=== PATIENT | male | born 1960 | race African-American/Black ===

== ENCOUNTER 2016-10-23 09:05 | Emergency (ER) | payer MEDICAID ==
[~2016-10-23] VITALS: Ht 162.6 cm; Wt 65.0 kg
[~2016-10-23 09:05] MED LIST: ACET500T67 PO; CHOL100055 PO; METO50TA5 PO; MULT-868 PO; ONDA4TAB41 PO; [UNRECOGNIZED DRUG - CODE] PO
--- OUTSIDE RECORDS SUMMARY | 2016-10-23 09:09 | XMS REPORT | Referral Summary ---
Author Author [facility] Organization [facility] Address Unknown Phone Unavailable Care Team Providers Care Cellophane Worker Name Role Phone Lex Dixon Primary Care Physician [phone] Encounter VC Date(s): 02/02/15 - 02/02/15 [facility], [address] [place] [address]- Discharge Disposition: 01-Home or Self Care Attending Physician: Marilyn Dixon MD Admitting Physician: Marilyn Dixon MD Vital Signs No data available for this section Problem List Condition Effective Dates Status Health Status Informant Anemia(Confirmed) Active Encephalitis(Confirm 1964 Active ed) Pinworms(Confirmed) 1991 Active Fracture-Rt 1995 Active wrist(Confirmed) Mental retardation Active (disorder)(Confirmed ) MRSA Active infection-skin(Confi rmed) Paronychia/Rt 2006 Active finger(Confirmed) Athletes Active foot(Confirmed) Vitamin D Active deficiency(Confirmed ) Allergies, Adverse Reactions, Alerts Substance Reaction Severity Status Hydrogen Peroxide Active Milk Products Active Medications acetaminophen 500 mg oral tablet See Instructions, 1-2 tabs mg Oral q6hrs prn fever or pain ok to refill x 1 yr , # 24 tabs, 1 Refill(s), Pharmacy: [facility], 1-2 tabs mg Oral q6hrs prn fever or pain ok to refill x 1 yr Start Date: 09/22/14 Stop Date: 09/23/15 Status: Ordered Drisdol 50,000 intl units (1.25 mg) oral capsule 1 caps, Oral, qMonth, # 3 caps, 3 Refill(s), Pharmacy: [facility], 1 caps Oral qMonth Start Date: 01/12/14 Status: Ordered Thera-M oral tablet 1 tabs, Oral, Daily, # 90 tabs, 3 Refill(s), Pharmacy: [facility] Start Date: 02/02/15 Status: Ordered Results No data available for this section Immunizations Vaccine Date Refusal Reason tetanus/diphth/pertuss (Tdap) adult/adol 07/16/09 influenza virus vaccine, live 04/19/13 pneumococcal 23-polyvalent vaccine 10/30/03 pneumococcal 23-polyvalent vaccine 04/13/01 pneumococcal 23-polyvalent vaccine 03/19/01 tetanus-diphth toxoids (Td) adult/adol 07/01/99 Procedures Procedure Date Related Diagnosis Body Site Colonoscopy1 09/02/12 Surgery-oral 6 extractions 2009 1pinworms, repeat in 10 years Social History Social History Type Response Smoking Status Never smoker Assessment and Plan No data available for this section
--- OUTSIDE RECORDS SUMMARY | 2016-10-23 09:09 | XMS REPORT | Referral Summary ---
Author Author [facility], [facility] Organization [facility] Address Unknown Phone Unavailable Care Team Providers Care Industrial Electrical Engineer Name Role Phone Lex Dixon Primary Care Physician [phone] Encounter VC Date(s): 12/01/14 - 12/01/14 [facility], [address] [place] [id number] Discharge Disposition: 01-Home or Self Care Attending Physician: Mike Pond APRN Admitting Physician: Mike Pond APRN Vital Signs No data available for this [...] , # 24 tabs, 1 Refill(s), Pharmacy: [facility], 1-2 tabs mg Oral q6hrs prn fever or pain ok to refill x 1 yr Start Date: 09/22/14 Stop Date: 09/23/15 Status: Ordered Drisdol 50,000 intl units (1.25 mg) oral capsule 1 caps, Oral, qMonth, # 3 caps, 3 Refill(s), Pharmacy: [facility], 1 caps Oral qMonth Start Date: 01/12/14 Status: Ordered Thera-M oral tablet 1 tabs, Oral, Daily, # 90 tabs, 3 Refill(s), Pharmacy: [facility] Start Date: 02/02/15 Status: Ordered Results No [...]
--- OUTSIDE RECORDS SUMMARY | 2016-10-23 09:09 | XMS REPORT | Referral Summary ---
Author Author [facility], [facility] Organization [facility] Address Unknown Phone Unavailable Care Team Providers Care Department Chairperson Name Role Phone Reyes Nick Primary Care Physician [phone] Encounter VC Date(s): 05/01/16 - 05/01/16 [facility], [address] [place] [address]- Discharge Diagnosis: Mentally challenged Discharge Diagnosis: Adult general medical exam Discharge Disposition: 01-Home or Self Care Attending Physician: Reyes Nick DO Admitting Physician: Reyes Nick DO Vital Signs Most recent to 1 oldest [Reference Range]: Temperature Tympanic 35.7 degC [36.6-38.1 degC] *LOW* (05/01/16 9:33 AM) Peripheral Pulse 68 bpm Rate [60-100 bpm] (05/01/16 9:33 AM) Blood Pressure 140/96 mmHg [90-140/60-90 mmHg] (05/01/16 9:33 AM) SpO2 98 % (05/01/16 9:33 AM) Problem List Condition Effective Dates Status Health Status Informant Anemia(Confirmed) Active Encephalitis(Confirm 1964 Active ed) Pinworms(Confirmed) 1991 Active Fracture-Rt 1995 Active wrist(Confirmed) MRSA Active infection-skin(Confi rmed) Mental retardation Active (disorder)(Confirmed ) Paronychia/Rt 2006 Active finger(Confirmed) Athletes Active foot(Confirmed) Vitamin D Active deficiency(Confirmed ) Allergies, Adverse Reactions, Alerts Substance Reaction Severity Status Hydrogen Peroxide Active Milk Products Active Medications acetaminophen 0 Refill(s) Start Date: 10/31/15 Status: Ordered Mucinex mg, Oral, q12hr, 0 Refill(s) Start Date: 10/31/15 Status: Ordered ondansetron 4 mg oral tablet mg tabs, Oral, q8hr, 0 Refill(s) Start Date: 10/31/15 Status: Ordered Thera-M oral tablet 1 tabs, Oral, Daily, # 90 tabs, 3 Refill(s), Pharmacy: [email or web address] Start Date: 02/02/15 Status: Ordered Vitamin D with Minerals oral tablet 1 tabs, Oral, Daily, # 30 tabs, 0 Refill(s) Start Date: 10/31/15 Status: Ordered Results No data available for [...] Smoking Status Never smoker Assessment and Plan Extracted from: Title: Office Visit Note Author: Reyes Nick DO Date: 05/01/16 Assessment/Plan 1.Mentally challenged 1. Although severely mentally challenged, patient follows directions well and answers yes/no appropriately. 2. His tfmw-duk-ayjxnck home medications reviewed, no changes were made. 3. Follow-up in 3 months for reevaluation, sooner if any new concerns. Ordered: Office Visit Level 3 Est 04980 2.Adult general medical exam 1. This is a well-developed well-nourished 56 -year-old gentleman who is in relatively good health. 2. Continue with healthy diet. Recommended finding some type of exercise for him to do daily. Ordered: Office Visit Level 3 Est 02504
--- OUTSIDE RECORDS SUMMARY | 2016-10-23 09:09 | XMS REPORT | Referral Summary ---
Author Author [facility], [facility] Organization [facility] Address Unknown Phone Unavailable Care Team Providers Care Senior Materials Scientist Name Role Phone Lex Dixon Primary Care Physician [phone] Encounter VC Date(s): 01/05/15 - 01/05/15 [facility], [address] [place] [address]- Discharge Disposition: 01-Home or Self Care Attending [...] , # 24 tabs, 1 Refill(s), Pharmacy: [facility], 1-2 tabs mg Oral q6hrs prn fever or pain ok to refill x 1 yr Start Date: 09/22/14 Stop Date: 09/23/15 Status: Ordered Drisdol 50,000 intl units (1.25 mg) oral capsule 1 caps, Oral, qMonth, # 3 caps, 3 Refill(s), Pharmacy: [facility], 1 caps Oral qMonth Start Date: 01/12/14 Status: Ordered Thera-M oral tablet 1 tabs, Oral, Daily, # 90 tabs, 3 Refill(s), Pharmacy: [facility] Start Date: 02/02/15 Status: Ordered Results No [...]
--- OUTSIDE RECORDS SUMMARY | 2016-10-23 09:09 | XMS REPORT | Continuity of Care Document ---
Author Author [facility] Organization [facility] Address Unknown Phone Unavailable Allergies Active Description Code Type Severity Reaction Onset Reported/Identified Relationship to Patient Clinical Status Yes Hydrogen Peroxide Other N/A N/A 08/16/2014 Yes Milk Products egg-containing compound N/A N/A 08/16/2014 Medications Problems Procedures Code Description Performed By Performed On SURG TOOTH EXTRACT NEC Earl Velez DDS, MD 11/24/2012 Results Encounters ACCT No. Visit Date/Time Discharge Status Pt. Type Provider Facility Loc./Unit Complaint [id number] 11/24/2012 10:10:00 2012 15:05:00 DIS Outpatient Agustin JIMENEZ MD, Earl Wiseman [facility] [place]
--- OUTSIDE RECORDS SUMMARY | 2016-10-23 09:09 | XMS REPORT | Referral Summary ---
Author Author [facility], Family [facility] Organization [facility] Address Unknown Phone Unavailable Care Team Providers Care Shot Hole Shooter Name Role Phone Reyes Nick Primary Care Physician [phone] Encounter VC Date(s): 10/31/15 - 10/31/15 [facility], [address] [place] [address]- Discharge Diagnosis: Mental retardation (disorder) Discharge Disposition: 01-Home or Self Care Attending Physician: Reyes Nick DO Admitting Physician: Reyes Nick DO Vital Signs Most recent to 1 oldest [Reference Range]: Temperature Tympanic 35.4 degC [36.6-38.1 degC] *LOW* (10/31/15 2:38 PM) Peripheral Pulse 60 bpm Rate [60-100 bpm] (10/31/15 2:38 PM) Blood Pressure 124/80 mmHg [90-140/60-90 mmHg] (10/31/15 2:38 PM) Problem List Condition Effective Dates Status Health [...] Daily, # 90 tabs, 3 Refill(s), Pharmacy: [facility], [facility] Start Date: 02/02/15 Status: Ordered Vitamin D [...] Visit Note Author: Reyes Nick DO Date: 10/31/15 Assessment/Plan 1.Mental retardation (disorder) 1. Continue with current care at the care home. 2. Follow-up if any new concerns. General medical exam 1. This is a well-developed well-nourished 55-year-old gentleman in relatively good health. 2. Screening labs ordered, report is pending. Labs to be done at his care home facility. 3. His blood pressure is well within normal limits at this time. No medications recommended. 4. Low salt diet recommended. 5. Follow-up in 6 months for blood pressure check. Ordered: CBC w/ Differential Comprehensive Metabolic Panel Hemoglobin A1c Lipid Panel Periodic Comp Preventive Med 40 to 64 years Est 52589 TSH with Reflex Free T4
[2016-10-23 09:10] VITALS: Ht 162.6 cm; Wt 65.0 kg
--- NOTE | 2016-10-23 09:14 | NUR ---
EKG EKG TAKEN AND GIVEN TO DR LICONA
[2016-10-23] MEDS ORDERED: NORMAL SALINE 1,000 ML IV ONE (09:22)
--- NOTE | 2016-10-23 09:24 | ERPDOC ---
Departure Disposition Decision Date: October 23, 2016 Disposition Decision Time: 10:25 Disposition: 01 DISCHARGED HOME, SELF-CARE Impression Impression Impression: Primary Impression: Epigastric abdominal pain Severity: Moderate Condition: Improved Seen By: Physician only Referrals: ELY SANDERS MD (PCP) 3 Days ABIGAIL GUIDO MD (Family) Patient Instructions: Epigastric Pain (ED) Problems/Meds/Labs Reviewed?: Yes Medications reviewed and manag: Yes Additional Instructions: We have evaluated you for various causes of chest pain. We did not find any life -threatening causes of your chest pain. Follow up with your doctor later this week. Take the zantac as needed for similar symptoms to see if this helps your pain. Follow up care ordered?: Yes Mental Status: Alert, Oriented Scripts Ranitidine HCl (Zantac) 150 Mg Tablet 150 MG PO [id number] Y for REFLUX, #30 TAB Take 1 tablet, by mouth, 2 times a day. Prov: OCTOBERCHERRI DO 10/23/16 HPI - Chest Pain General Stated Complaint: CHEST PAIN Time Seen by Provider: 09:22 Source: patient, RN/MD Exam Limitations: other HPI - Chest Pain Initial Comments 56yo man presented to the ER by EMS for chest pain. Pt is a [facility] home resident who has not eaten since yesterday noon 2/2 nausea. Today he went to his 'day activities'. There, he c/o cp since last night, so the NS referred pt to the ER for further eval. Pt has MR, and so is unable to elaborate further on nature of pain, duration, timing, etc. Pt is well-known to this ER; has been worked up for CP numerous times without significant findings. Occurred At: home Onset/Timing: Rapid, Constant Duration: 12-24 hrs Pain/Severity Scale: Now & Worst: Unable to Rate Activities at Onset/Context: rest Location: substernal, epigastric Associated Symptoms: denies symptoms Chest Pain Radiation: no radiation Aspirin Treatment Today: 81 mg x 4, provided by ED Prior Chest Pain/Cardiac Anil: non-cardiac Hx of Similar Symptoms: Yes Allergies: Coded Allergies: milk (Verified Allergy, Unknown, 10/23/16) hydrogen peroxide (Verified Adverse Reaction, Unknown, 10/23/16) Viagra/ED med in past 36 hrs: No Past History Unable to Obtain PMH Due to: other Past Medical History Metabolic: hypertension Neurological: chronic disability Musculoskeletal: other Hematologic: anemia Surgical History Denies Surgeries Family History Family PMH: FOUND: other Vaccines Hx Influenza Vaccination: No Review of Systems Unable to Obtain ROS Due to: other Cardiovascular Cardiac: chest pain GI Upper Abdomen: heartburn/indigestion, nausea, pain All other Systems All Other Systems: Reviewed and Negative Physical Exam General General Nourishment: well nourished, well developed, appears stated age, no acute distress, adult, obese General Body Habitus: well groomed Vitals and Pain First Documented Vital Signs Date Time Temp Pulse Resp B/P Pulse Ox O2 Delivery O2 Flow Rate FiO2 10/23/16 09:10 97.1 81 16 153/86 97 Room Air Weight: Kilograms: Height (feet): 5 Height (inches): 6 Triage Pain Scale: RN VS reviewed by Provider: Yes Normal Exams: Head: Normocephalic w/o trauma Eyes: Pupils are PERRLA w/ EOMI, No scleral icterus, irritation ENMT: No facial trauma, nasal exudates, pharyngeal erythema Neck: Full range of motion, without adenopathy, JVD Lymphatic: No lymphadenopathy Musculoskeletal: No tenderness, or deformity noted Integumentary: No rashes, hives, or bruising noted Neurologic: Patient is alert, and oriented Psychiatric: Patient exhibits, appropriate attention Respiratory (brief) Respiratory: FOUND: clear all swanson, equal bilaterally, symmetrical, NOT FOUND : rales, wheezes Cardiovascular (brief) Cardiac: FOUND: regular rate, regular rhythm, NOT FOUND: click, gallop, murmur , pedal edema, peripheral edema, rub Capillary Refill: <2 sec Pulses: all distal extremities, equal, strong Abdomen (brief) Abdominal Brief: FOUND: bowel normo active x4, soft, NOT FOUND: distended, hepatosplenomegaly, pulsatile mass, tender Differential Diagnoses Considering: Acute WI, Anxiety/Panic, Costochondritis, Esophageal Spasm, GERD, Pericarditis, Pleurisy, Pneumothorax, Pneumonia, PSVT, Pulmonary Edema Progress Results/Orders Orders Procedure Category Date Status Time Cbc W/Auto LAB 10/23/16 Complete Diff-Reflex Manual 09:22 Bmp - Basic Metabolic LAB 10/23/16 Complete Panel 09:22 Probnp LAB 10/23/16 Complete 09:22 Troponin I W LAB 10/23/16 Complete Hemolysis Index 09:22 INR LAB 10/23/16 Complete 09:22 EKG EKG 10/23/16 Taken 09:22 Chest 1 View RAD 10/23/16 Resulted 09:22 Iv Lock (Ed Only) EDM 10/23/16 Transmitted 09:22 Normal Saline (Normal PHA 10/23/16 Complete Saline Iv) 09:22 Aspirin (Asa) PHA 10/23/16 Complete 09:30 Famotidine (Pepcid 20 PHA 10/23/16 Complete Mg Inj.) 09:30 Lab Results Laboratory Tests Test 10/23/16 09:38 White Blood Count 8.8T/MM3 Red Blood Count 4.93M/MM3 Hemoglobin 14.8GM/DL Hematocrit 43.1% Mean Corpuscular Volume 87.4UM3 Mean Corpuscular Hemoglobin 30.0UUG Mean Corpuscular Hemoglobin Concent 34.3GM/DL RDW Standard Deviation 40.0FL Platelet Count 184T/MM3 Mean Platelet Volume 11.3UM3 Immature Granulocyte % (Auto) 0.2% Neutrophils (%) (Auto) 81.3% Lymphocytes (%) (Auto) 12.9% Monocytes (%) (Auto) 4.6% Eosinophils (%) (Auto) 0.8% Basophils (%) (Auto) 0.2% Absolute Immature Granulocyte (auto 0.02T/MM3 Absolute Neutrophils (auto) 7.1T/MM3 Absolute Lymphocytes (auto) 1.1T/MM3 Absolute Monocytes (auto) 0.4T/MM3 Absolute Eosinophils (auto) 0.1T/MM3 Absolute Basophils (auto) 0.0T/MM3 Prothromb Time International Ratio 1.04 Turbidity < 20 Sodium Level 147MEQ/L Potassium Level 3.8MEQ/L Chloride Level 104MEQ/L Carbon Dioxide Level 26MEQ/L Anion Gap 17MEQ/L Blood Urea Nitrogen 10.0MG/DL Creatinine 0.9MG/DL Glomerular Filtration Rate Calc 88 BUN/Creatinine Ratio 11RATIO Glucose Level 98MG/DL Calculated Osmolality 281MOSM/KG Calcium Level 9.7MG/DL Icterus Index < 2 Troponin I < 0.012ng/ml QU-Dpg-C-Type Natriuretic Peptide 186PG/ML Chemistry Specimen Hemolysis < 15 Medications Current ED Medications Sodium Chloride (Normal Saline IV) 1,000 ml @ 0 mls/hr Q0M ONCE IV Last administered on 10/23/16 09:33; Start 10/23/16 at 09:22; Stop 10/23/16 at 09:24 ; Status DC Aspirin 324 mg 324 mg O ONCE PO ; Start 10/23/16 at 09:30; Stop 10/23/16 at 09: 31; Status DC Famotidine/Sodium Chloride (PEPCID 20 mg INJ./NS) 52 ml @ 100 mls/hr O ONCE IV Last administered on 10/23/16 09:30; Start 10/23/16 at 09:30; Stop at 10:01; Status DC Progress Progress Pt without evidence of AMI on Hx, PE, or labs/rads. Sx had completely resolved by the time pt was presented to the ER. Given pts hx, most likely GERD or GE; somatization also in ddx. Will d/c to home with recommendations for symptomatic care. Caregiver voiced understanding. EKG EKG : Rate: 60-100 Rhythm: sinus Aurora: normal QRS: normal Intervals: normal ST/T: normal Subtle Signs LVH Interpreted by: signing physician Xray Xray : Xray: CXR Portable Interpretation: Normal, Interpreted by Me, Reviewed Written Report CHERRI LICONA DO October 23, 2016 09:24
[2016-10-23] MEDS ORDERED: ASPIRIN 81 MG CHEWABLE TABLET PO ONE (09:30)
[2016-10-23] MEDS ORDERED: FAMOTIDINE 20 MG in NORMAL SALINE 50 ML IV ONE (09:30)
--- NOTE | 2016-10-23 09:35 | NUR ---
MEDICATIONS IVF INFUSING AND PEPCID INFUSING ORDERED
[2016-10-23] MEDS ORDERED: METO100T5 PO (09:38)
[2016-10-23] MEDS ORDERED: CALC-1000 PO (09:39)
[2016-10-23] MEDS ORDERED: MAGN400O4 PO (09:40)
--- NOTE | 2016-10-23 09:40 | NUR ---
RADIOLOGY RADIOLOGY IN ROOM FOR PORTABLE CHEST XRAY
[2016-10-23] MEDS ORDERED: GUAI100L60 PO (09:41)
--- OUTSIDE RECORDS SUMMARY | 2016-10-23 09:48 | XMS REPORT | Continuity of Care Document ---
Author Author [facility] Organization [facility] Address Unknown Phone Unavailable Allergies Active Description [...] Status Pt. Type Provider Facility Loc./Unit Complaint [id number] 11/24/2012 10:10:00 2012 15:05:00 DIS Outpatient Agustin JIMENEZ MD, Earl Wiseman [facility] [place]
[2016-10-23 09:50] LABS: BASOPHILS % (AUTO) 0.2 % (0-2); EOSINOPHILS # (AUTO) 0.1 T/MM3 (0-0.5); EOSINOPHILS % (AUTO) 0.8 % (0-4); HCT - HEMATOCRIT 43.1 % (41-53); HGB - HEMOGLOBIN 14.8 GM/DL (13.5-17.5); IMMATURE GRANULOCYTE # (AUTO) 0.02 T/MM3 (0.00-0.03); IMMATURE GRANULOCYTE % (AUTO) 0.2 % (0.0-0.5); LYMPHOCYTES # (AUTO) 1.1 T/MM3 (1-4.8); LYMPHOCYTES % (AUTO) 12.9 % (23-45); MEAN CORPUSCULAR HGB CONC(MCHC 34.3 GM/DL (31-37); MEAN CORPUSCULAR VOLUME 87.4 UM3 (80-100); MEAN PLATELET VOLUME 11.3 UM3 (9.4-12.4); MONOCYTES # (AUTO) 0.4 T/MM3 (0-0.8); MONOCYTES % (AUTO) 4.6 % (0-9.0); NEUTROPHILS #(AUTO)-ABSOLUTE 7.1 T/MM3 (1.8-7.7); NEUTROPHILS % (AUTO) 81.3 % (33-66); RED BLOOD COUNT 4.93 M/MM3 (4.50-5.90); WBC - WHITE BLOOD COUNT 8.8 T/MM3 (4.5-11.0)
[2016-10-23 09:55] LABS: INR 1.04 (0.76-1.04); PROTHROMBIN TIME 11.3 SEC (9.31-12.49)
--- NOTE | 2016-10-23 09:55 | DI ---
EXAM: CHEST 1 VIEW COMPARISON: 07/07/2012 HISTORY: ITS.REASON: CP . FINDINGS: The cardiomediastinal silhouette is within limits of normal. The pulmonary vascularity appears unremarkable. The lungs are clear. There is no evidence for pleural effusion. There is no evidence for a pneumothorax. No osseous abnormalities are identified. IMPRESSION: Unremarkable exam. No acute process identified. LOCATION OF DICTATION: [facility] [place] .
[2016-10-23 09:59] LABS: ANION GAP 17 MEQ/L (5-15); BUN/CREATININE RATIO 11 RATIO (6-26); CALCIUM 9.7 MG/DL (8.4-10.2); CHLORIDE 104 MEQ/L (98-107); CO2 - CARBON DIOXIDE 26 MEQ/L (22-30); CREATININE 0.9 MG/DL (0.8-1.5); GLOMERULAR FILTRATION RATE 88; GLUCOSE 98 MG/DL (75-110); POTASSIUM 3.8 MEQ/L (3.6-5); SODIUM 147 MEQ/L (134-144)
[2016-10-23 10:12] LABS: PROBNP 186 PG/ML (0-175)
--- NOTE | 2016-10-23 10:15 | NUR ---
STATUS PT RESTING AT THIS TIME. RESCARE STAFF AND GUARDIAN AT BEDSIDE
[2016-10-23] MEDS ORDERED: RANI150T12 PO (10:28)
--- NOTE | 2016-10-23 10:30 | NUR ---
PROVIDER DR LICONA IN ROOM TALKING TO PT AND RESCARE STAFF
--- NOTE | 2016-10-23 10:38 | NUR ---
IVF IVF INFUSED AND IV DC'D AT THIS TIME
[2016-10-23 10:41] VITALS: BP 164/82; PULSE 82; RESP 20; TEMP 97.1; O2SAT 99
--- NOTE | 2016-10-23 10:41 | NUR ---
DISMISSAL DISMISSAL ISNTRCUTIONS TO PT WITH RX FOR ZANTAC. NO FURTHER QUESTIONS PER PT OR RESCARE STAFF AT THIS TIME
== END 2016-10-23 11:41 | disposition home or self-care (01) ==
LOC: ED 09:05
DX: R07.89 Other chest pain (principal); R10.13 Epigastric pain; R11.0 Nausea
CPT/HCPCS: 71010; 80048; 83880; 84484; 85025; 85610; 93005; 96361; 96365; 99284; J7030; J7050; S0028